=== PATIENT | female | born 1965 ===

== ENCOUNTER → 2017-07-03 | Outpatient (CLI) | payer OTHER ==
[~2017-07-03] VITALS: Ht 160 cm; Wt 79.0 kg
[~2017-07-03] MED LIST: ADV250 IH; ALBU8HFA4 IH; AMOX1TAB16 PO; AUD NEB; PRED20 PO
[2017-07-03 14:27] VITALS: BP 144/95
== END | disposition home or self-care (01) ==
LOC: SRCNTR 13:56
PROVIDERS: ATTEND Internal Medicine Critical Care Medicine
DX: J45.901 Unspecified asthma with (acute) exacerbation (principal); J01.90 Acute sinusitis, unspecified; I10 Essential (primary) hypertension; E11.9 Type 2 diabetes mellitus without complications; J09.X2 Influenza due to identified novel influenza A virus with other respiratory manifestations
CPT/HCPCS: G0463